=== PATIENT | male | born 1980 | race Caucasian/White ===

== ENCOUNTER 2019-06-25 06:26 | Observation (INO) | payer OTHER ==
[~2019-06-25] VITALS: Ht 167.6 cm; Wt 70.3 kg
[2019-06-25 06:31] VITALS: BP 121/79
[2019-06-25 06:52] LABS: ABSOLUTE BASOPHILS 0.1 thou/uL (0.0-0.2); ABSOLUTE EOSINOPHILS 0.4 thou/uL (0.0-0.7); ABSOLUTE LYMPHOCYTES 2.4 thou/uL (0.8-5.3); ABSOLUTE NEUTROPHILS 7.1 thou/uL (1.6-8.1); BASOPHILS 0.7 %; EOSINOPHILS 3.4 %; HEMATOCRIT 46.7 % (42.0-52.0); LYMPHOCYTES 22.4 %; MCH 31.9 pg (26.0-34.0); MCHC 34.4 g/dL (28.0-37.0); MCV 92.7 fL (80.0-100.0); MONOCYTES 8.8 %; MPV 7.9 fl. (7.2-11.1); NUCLEATED RBCS 0 /100WBC; PLATELET COUNT* 241 thou/uL (150-400); POLYS 64.7 %; RBC 5.04 mil/uL (4.50-6.00); RDW-CV 12.8 % (10.5-14.5); WBC 10.9 thou/uL (4.0-11.0)
--- NOTE | 2019-06-25 06:57 | NUR ---
THIS NURSE RECEIVED REPORT FROM HAL HENDERSON. THIS NURSE TO ASSUME PT CARE AT THIS TIME.
[2019-06-25 06:58] LABS: CALCIUM 8.7 mg/dL (8.5-10.1); CREATININE 0.8 mg/dL (0.6-1.3); POTASSIUM 3.7 mmol/L (3.5-5.1)
[2019-06-25 07:02] LABS: TOTAL BILIRUBIN 1.4 mg/dL (<0.1-1.0); TOTAL PROTEIN 7.2 g/dL (6.4-8.2)
[2019-06-25 08:44] LABS: URINE BILIRUBIN NEGATIVE (Negative); URINE BLOOD NEGATIVE (Negative); URINE CLARITY CLEAR; URINE COLOR YELLOW; URINE GLUCOSE-RANDOM NEGATIVE (Negative); URINE KETONES NEGATIVE (Negative); URINE LEUKOCYTES-REFLEX NEGATIVE (Negative); URINE NITRITE-REFLEX NEGATIVE (Negative); URINE PROTEIN NEGATIVE (Negative); URINE UROBILINOGEN 0.2 E.U./dl (0.2-1.0)
--- NOTE | 2019-06-25 11:39 | NUR ---
REPORT GIVEN TO HAL ODOM WHO IS TO ASSUME PT CARE INPATIENT NURSE.
[2019-06-25 11:40] VITALS: BP 103/76
[2019-06-25 12:49] VITALS: BP 117/69
--- NOTE | 2019-06-25 16:12 | NUR ---
PT ARRIVED FROM ER ABOUT 1150. VITALS STABLE. IV PATENT. MINIMAL PAIN. DENIED N/V. UP AD JT. TOLERATING CLEAR LIQUIDS. WILL BE NPO AT MIDNIGHT FOR POSSIBLE PROCEDURE. CALL LIGHT WITHIN REACH. WILL CONTINUE TO MONITOR.
[2019-06-25 16:30] VITALS: BP 119/61
[2019-06-25 19:40] VITALS: BP 121/70
[2019-06-26 05:36] LABS: HEMATOCRIT 44.4 % (42.0-52.0); MCH 31.7 pg (26.0-34.0); MCHC 33.8 g/dL (28.0-37.0); MCV 93.9 fL (80.0-100.0); MPV 7.9 fl. (7.2-11.1); RBC 4.73 mil/uL (4.50-6.00); RDW-CV 13.1 % (10.5-14.5); WBC 9.6 thou/uL (4.0-11.0)
[2019-06-26 05:45] LABS: CALCIUM 8.3 mg/dL (8.5-10.1); POTASSIUM 3.7 mmol/L (3.5-5.1)
--- NOTE | 2019-06-26 05:56 | NUR ---
PT ALERT AND ORIENTED. VSS ON RA. ASSESSMENT DOCUMENTED. PAIN MEDS GIVEN THIS SHIFT. AT BEDSIDE. ABX INFUSED ORDERED. PT CALLS OUT APPROPRIATELY. PT TO RECLINER THIS SHIT. STRAIGHT CATH THIS SHIFT. PT DENIES N/V. CALL LIGHT WITHIN REACH. HOURLY ROUNDINGS MADE. WILL CONTINUE TO MONIT
--- NOTE | 2019-06-26 14:45 | NUR ---
PT CALLED [facility] TO SPEAK WITH NURSE. THIS NURSE WENT TO PATIENT ROOM AND HE EXPRESSED HE WOULD LIKE TO "SIGN OUT". THIS NURSE EXPLAINED PROCESS OF AMA PAPERWORK AND ASKED PATIENT IF HE WOULD WAIT UNTIL NURSE COULD CALL DR. SURGERY RESIDENT WIL CALLED AND SAID [facility] AND WOULD NOT MAKE IT OUT TO HOSPITAL UNTIL AFTER 1600. THIS NURSE NOTIFIED PATIENT AND HE SIGNED SELF OUT AMA. IV DC'D WITHOUT COMPLICATIONS. PT VERBALIZED HE IS GOING TO FOLLOW UP WITH PRIMARY SATURDAY. PT LEFT AT 1445 WITH ALL BELONGINGS. SEE ASSESSMENT AND VITALS FOR OTHER DETAILS.
== END 2019-06-26 14:45 | disposition left against medical advice (07) ==
LOC: M.ERS 06:26 → M.TBA-ER 10:22 → M.ORTHSURG 10:22
PROVIDERS: Family Medicine; ADMIT Surgery
DX: R10.84 Generalized abdominal pain (principal); R11.2 Nausea with vomiting, unspecified; R19.7 Diarrhea, unspecified; J45.909 Unspecified asthma, uncomplicated; F17.210 Nicotine dependence, cigarettes, uncomplicated